=== PATIENT | male | born 1985 | race American Indian/Alaskan Native ===

== ENCOUNTER 2018-08-27 01:42 | Emergency (ER) | payer SELFPAY ==
[2018-08-27] MEDS ORDERED: MOTRIN PO ONE (03:56)
--- NOTE | 2018-08-27 06:00 | XRay Report ---
FINAL REPORT EXAM: XR SHOULDER 2+V LT HISTORY: left shoulder pain COMPARISONS: None. FINDINGS: 3 views left shoulder Left glenohumeral joint appears intact. Acromioclavicular and coracoclavicular intervals are within normal limits. No displaced fracture. Incomplete evaluation of the adjacent left lung is unremarkable. IMPRESSION: Unremarkable left shoulder radiographs.
--- NOTE | 2018-08-27 06:02 | XRay Report ---
FINAL REPORT EXAM: XR RIBS UNILAT 2V LT HISTORY: left rib pain TECHNIQUE: AP chest radiograph with AP and oblique views of the left rib cage PRIORS: None. FINDINGS: No mediastinal shift. Cardiac silhouette is not enlarged. No pneumothorax, effusion, or focal pulmonary opacity. No displaced rib fracture. IMPRESSION: No displaced rib fracture or acute pulmonary finding identified.
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
[2018-08-27 07:00] VITALS: BP 125/78
== END 2018-08-27 06:58 | disposition home or self-care (01) ==
LOC: ED 01:42
DX: M25.512 Pain in left shoulder (principal); M54.9 Dorsalgia, unspecified; V89.2XXA Person injured in unspecified motor-vehicle accident, traffic, initial encounter; Y93.89 Activity, other specified; Y92.488 Other paved roadways as the place of occurrence of the external cause; Y99.8 Other external cause status
CPT/HCPCS: 99283